=== PATIENT | female | born 1975 | race Two or more races ===

== ENCOUNTER 2024-04-17 06:33 | Day surgery (SDC) | payer OTHER ==
[2024-04-17] MEDS ORDERED: CHLORHEXIDINE GLUCONATE 120 ML BOTTLE TOP ONE (14:30)
[2024-04-17] MEDS ORDERED: CIPROFLOXACIN IN 5 % DEXTROSE 400 MG/200 ML PIGGYBAG IV ONE (14:30)
[2024-04-17] MEDS ORDERED: ONDANSETRON HCL 2 MG/ML VIAL IV ONE (15:25)
[2024-04-17] MEDS ORDERED: MORPHINE SULFATE 4 MG/ML VIAL IV ONE (15:50)
[2024-04-17] MEDS ORDERED: MEPERIDINE HCL 25 MG/ML AMPUL IV ONE (15:50)
== END 2024-04-17 16:30 | disposition home or self-care (01) ==
LOC: CIR.AMB 06:33
PROVIDERS: ATTEND Surgery
DX: D24.2 Benign neoplasm of left breast (principal); N60.82 Other benign mammary dysplasias of left breast; R92.1 Mammographic calcification found on diagnostic imaging of breast; D48.62 Neoplasm of uncertain behavior of left breast; Z88.5 Allergy status to narcotic agent